=== PATIENT | female | born 1990 | race Hispanic/Latino ===

== ENCOUNTER 2021-05-04 15:06 | Emergency (ER) | payer MEDICAID, OTHER ==
[~2021-05-04] VITALS: Ht 149.9 cm; Wt 99.8 kg
[~2021-05-04 15:06] MED LIST: PREN-66 PO
[2021-05-04] MEDS ORDERED: NAPR-1180 PO (20:58)
[2021-05-04] MEDS ORDERED: KETOROLAC 60 MG VIAL (30MG/ML) IM ONE (21:00)
[2021-05-04 21:22] VITALS: BP 126/71
== END 2021-05-04 21:23 | disposition home or self-care (01) ==
LOC: EDH 15:06
DX: S93.402A Sprain of unspecified ligament of left ankle, initial encounter (principal); E66.9 Obesity, unspecified; Z68.41 Body mass index [BMI] 40.0-44.9, adult; W10.8XXA Fall (on) (from) other stairs and steps, initial encounter; Y93.89 Activity, other specified; Y92.89 Other specified places as the place of occurrence of the external cause; Y99.8 Other external cause status
CPT/HCPCS: 73610; 96372; 99283; J1885

== ENCOUNTER 2022-05-23 15:15 | Emergency (ER) | payer OTHER ==
[~2022-05-23] VITALS: Ht 149.9 cm; Wt 99.8 kg
[~2022-05-23 15:15] MED LIST changes: +NAPR-1180 PO
[2022-05-23 15:42] VITALS: BP 149/76
== END 2022-05-23 17:04 | disposition left against medical advice (07) ==
LOC: EDH 15:15
DX: H57.89 Other specified disorders of eye and adnexa (principal); Z53.21 Procedure and treatment not carried out due to patient leaving prior to being seen by health care provider